=== PATIENT | male | born 1965 | race Caucasian/White ===

== ENCOUNTER 2021-09-10 01:06 | Day surgery (SDC) | payer BC, SELFPAY ==
[2021-09-06 16:12] VITALS: BMI 26.4
--- NOTE | 2021-09-06 16:34 | PC.NURSE ---
Addendum entered by Salvador Tadeo RN 09/06/21 16:40: Patient is calling Dr Martinez's office about aspirin. Original Note: Report to the Outpatient Waiting Room, entrance under the [place] [facility] located off [facility], at time 0600 on date 09/10/21. OR Time: _0730_. - You and your visitor will be asked a series of questions to screen for COVID 19 for your protection. - Only one visitor is allowed at this time. - The patient visitor is requested to leave or wait in car when not with patient. - A mask is required within the hospital. Patients may have clear liquids (water, carbonated beverages, clear teas, apple juice) until 3 hours prior to surgery with a maximum of 20 ounces. - No food from midnight until time of surgery - Infants may have breast milk until 4 hours before surgery, infant formula 6 hours prior to surgery. - Children will be allowed to drink immediately following surgery. If applicable, please bring a bottle or sippy cup to assist with drinking. Juice, water, soda, and popsicles are readily available. For infants on formula, please bring formula the day of surgery. Pacifiers are allowed. Take the following medications with a SIP of water the morning of surgery: carvedilol Medications to discontinue per physician multivitamin, vitamin Date to take last dose 09/10/21 Please no make-up, nail panamanian, hairspray, perfume, deodorant, or body powder the day of surgery. No jewelry (including any body piercings) or valuables the day of surgery, leave them at home. Please take a shower or bath the night before, or the morning of, surgery with an antibacterial soap. Wear comfortable, loose fitting clothing. Children are encouraged to wear pajamas. - Jewelry must be removed prior to entering the operating room. Rings and piercings that are not removed may be cut off. - The hospital will not accept responsibility for valuables. - Please leave all valuables, including medications, at home the day of surgery. If you are going home after surgery, a licensed wheat combine driver must drive you home. - NO public transportation without another adult. - We recommend that an adult stay with you for 24 hours following discharge. - We also recommend that you do not drive, make important decision, drink alcoholic beverages, or take any drugs that were not prescribed by your health care provider for at least 24 hours after your discharge time. For Pediatric surgeries, we recommend two adults accompany the child home (only one inside the building at this time). Follow any additional instructions given to you from your surgeon. If you or anyone in your household have experienced Covid symptoms in the past week, please notify your surgeon or the nurse liaison at the phone number below for possible testing. Telephone instructions given to Salvador Larkin and asked if any additional questions and then verbalized understanding. Patient advised to call surgeon office or pre surgery nurse liaison [phone] if any additional questions.
[2021-09-10] VITALS (7 sets, daily range): BP systolic 107–152; BP diastolic 61–99; PULSE 55–63; RESP 12–16; TEMP 36.2–36.5; O2SAT 98–100; BMI 26.4
--- NOTE | 2021-09-10 06:27 | ECG_ITS ---
Measurements Intervals [place] Rate: 61 P: 17 IA: 139 QRS: 17 QRSD: 114 T: 39 QT: 395 QTc: 400 Interpretive Statements SINUS RHYTHM INTRAVENTRICULAR CONDUCTION DELAY ST ELEVATION IN ANTEROLATERAL LEADS, PROBABLY EARLY REPOLARIZATION BORDERLINE ECG Electronically Signed On 09-10-2021 18:21:43 CDT by Kingston Jones D.O.
--- NOTE | 2021-09-10 06:40 | WPDANESEPPF ---
Anes - Initial Pre Proc Eval Procedure: Operation Date: 09/10/21 07:30 Proposed Procedures p Excision Forehead Mass - Cleve Martinez MD Date/Time: 09/10/21 06:40 Surgeon: Cleve Martinez MD Pre Op Diagnosis: forehead mass Patient Data Age: 56 Gender: M Height: 1.8 m Weight: 86 kg Allergies Allergy/AdvReac Type Severity Reaction Status Date / Time No Known Allergies Allergy Verified 09/10/21 06:23 Home Medications Medication Instructions Recorded Confirmed Type carvedilol 3.125 mg tablet 3.125 mg PO Q12H 10/05/20 09/10/21 History ramipril 10 mg capsule 10 mg PO DAILY 10/05/20 09/10/21 History rosuvastatin 40 mg tablet 40 mg PO DAILY 10/05/20 09/10/21 History aspirin 81 mg tablet 81 mg PO DAILY 09/06/21 09/10/21 History calcium-vitamin D3 250 mg-50 unit 5,000 tablet PO DAILY 09/06/21 09/10/21 History tablet Patient hx anesthesia problems: none Family hx anesthesia problems: none Results Review: All pre-operative results and documents have been reviewed as part of the pre-operative evaluation. [facility] Past Medical History Medical History (Updated 09/10/21 @ 06:41 by Agustin Webb MD) CAD (coronary artery disease) Heart disease HTN (hypertension) Hyperlipidemia Surgical History Surgical History History of coronary artery stent placement Social History Social History Smoking status: Never smoker Smokeless tobacco user: chewing tobacco Alcohol intake: never Substance use: never Living arrangements: with family Spiritual care concerns: No Anes - Eval Final PreProcedure Day of Procedure 09/10/21 06:40 Patient weight: overweight Heart: regular rate and rhythm Lungs: clear to auscultation Neurological: alert and oriented ASA classification: III Emergent: no Anesthetic plan: proceed Anesthesia type and monitoring: general GIVS and standard monitoring Results Review: All pre-operative results and documents have been reviewed as part of the pre-operative evaluation. Informed Consent: The patient's anesthetic plan and its attendant risks and benefits were discussed with the patient/family/POA. Questions were solicited and answers provided to the satisfaction of the patient/family/POA.
--- NOTE | 2021-09-10 06:42 | W.PM.PROC2 ---
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 I want him to be very realistic about the risks involved as well as expectations. He understands the risk of recurrence. Injury to sensory and motor nerves in this area. This was outlined in detail. All questions answered to his satisfaction again today. Consent obtained. Patient was marked in the preoperative holding area with his verification. He was taken to the operating room placed supine on the operating room table. Anesthesia provided by anesthesiology and prepped and draped in standard sterile fashion. Surgical time-out was taken. 1% lidocaine and 0.25% Marcaine with epinephrine was used anesthetize locally. A 15 blade used to make an incision over the mass and dissection was continued down. I split the muscle and did not cut it. The mass was identified and I used an osteotome / rongeur / rasp to remove this. It was sent to pathology. Copious irrigated with saline solution. Closed in layers using 4-0 Monocryl and 5 0 nylon. He tolerated the procedure well. Was awoke and taken the PACU without difficulty. All instrument sponge counts were correct at the end of the case. Estimated Blood Loss 20 Drains No Packing No Pathology Yes (Subcutaneous forehead mass) Complications No immediate complications Condition Stable Disposition PACU
[2021-09-10] MEDS: LACTATED RINGERS 1,000 ML 30 ML IV CONT (06:56)
--- NOTE | 2021-09-10 07:02 | WPDHPUPDATE1 ---
History and Physical Update Update Date/Time: 09/10/21 07:02 History and Physical has been reviewed, including an updated exam of the patient. There are NO changes in the patient's condition. Risks, benefits, and alternatives have been discussed and questions answered. Patient agrees to proceed with procedure.
[2021-09-10] MEDS: ceFAZolin 2 GM/D5W 50 ML 2 GM/50 ML BAG IVPB (07:19)
[2021-09-10] MEDS: LIDO 1%/EPINEPHRINE 1:100,000 10 ML VIAL 20 ML INFILTRATE (07:38)
[2021-09-10] MEDS: BUPIVACAINE HCL 0.25% PF 30 ML VIAL INFILTRATE (07:38)
== END 2021-09-10 09:40 | disposition home or self-care (01) ==
PROVIDERS: Visit Provider Surgery Plastic and Reconstructive Surgery
PROC: (CPT 21029; principal; 2021-09-10 07:30)
DX: D16.4 Benign neoplasm of bones of skull and face (principal); I11.9 Hypertensive heart disease without heart failure; I25.10 Atherosclerotic heart disease of native coronary artery without angina pectoris; E78.5 Hyperlipidemia, unspecified; Z79.82 Long term (current) use of aspirin; F17.220 Nicotine dependence, chewing tobacco, uncomplicated
CPT/HCPCS: 21029; 88304; 93005; A9270; J0690; J2250; J2405; J2704; J3010; J7120